=== PATIENT | female | born 1955 | race Caucasian/White ===

== ENCOUNTER 2016-12-22 11:16 | Inpatient (IN) | payer MEDICARE, OTHER ==
[~2016-12-22] VITALS: Ht 152.4 cm; Wt 34.1 kg
[~2016-12-22 11:16] MED LIST: ADVAIR 500-501 EACH INH; ASPIR 8181 MG PO; CEFTIN250 MG/5 M PO; ENSURE LIQUID237 ML PO; HYDROCODON-ACE1 EAC6 PO; KLONOPIN0.5 MG PO; MEDROL DOSEPAK 24 MG PO; MEGACE400 MG/10 PO; MULTIPLE VITAM1 EACH PO; NEURONTIN 300300 MG PO; PROMOD 946 ML BT1 EA PO; SPIRIVA HANDIH18 MCG INH; SPIRIVA18 MCG INH; THERAGRAN M TAB1 EA PO; VENTOLIN/PROVE0.5 ML INH; ZOCOR20 MG PO
[2016-12-22 13:40] LABS: BUN/CREATININE RATIO 45 (0-10)
[2016-12-22 13:47] LABS: HEMOGLOBIN 10.5 gm/dl (12.3-15.3); RED BLOOD COUNT 3.27 M/UL (4.00-5.10)
[2016-12-23 03:20] LABS: BUN/CREATININE RATIO 55 (0-10)
[2016-12-24 05:25] LABS: RED BLOOD COUNT 3.09 M/UL (4.00-5.10)
[2016-12-24 05:27] LABS: WHITE BLOOD COUNT 10.3 K/UL (4.5-11.0)
[2016-12-24 05:46] LABS: BUN/CREATININE RATIO 43 (0-10)
[2016-12-25 04:15] LABS: HEMOGLOBIN 9.5 gm/dl (12.3-15.3); WHITE BLOOD COUNT 8.2 K/UL (4.5-11.0)
[2016-12-25 04:42] LABS: BUN/CREATININE RATIO 38 (0-10)
[2016-12-27 04:01] LABS: HEMOGLOBIN 10.3 gm/dl (12.3-15.3); RED BLOOD COUNT 3.15 M/UL (4.00-5.10); WHITE BLOOD COUNT 9.3 K/UL (4.5-11.0)
[2016-12-27 04:20] LABS: BUN/CREATININE RATIO 45 (0-10)
[2016-12-27 16:39] LABS: HEMOGLOBIN 10.9 gm/dl (12.3-15.3); RED BLOOD COUNT 3.43 M/UL (4.00-5.10); WHITE BLOOD COUNT 17.2 K/UL (4.5-11.0)
[2016-12-29 03:43] LABS: HEMOGLOBIN 9.2 gm/dl (12.3-15.3); WHITE BLOOD COUNT 16.4 K/UL (4.5-11.0)
[2016-12-29 03:45] LABS: RED BLOOD COUNT 2.93 M/UL (4.00-5.10)
[2016-12-29] MEDS ORDERED: REMERON15 MG PO ×2 (11:27→13:07)
[2016-12-29] MEDS ORDERED: MEDROL DOSEPAK 24 MG PO (14:18)
[2016-12-29] MEDS ORDERED: BACITRACIN OINT30 GM EXT (14:25)
[2016-12-29] MEDS ORDERED: ENSURE PLUS237 ML PO (14:27)
[2016-12-29] MEDS ORDERED: LEVAQUIN750 MG PO (14:27)
[2016-12-29] MEDS ORDERED: PROTONIX 40 MG40 M1 PO (14:54)
== END 2016-12-29 16:28 | DRG 208 ==
LOC: ER1 11:16 → CCU 16:19 → ZEROF 16:19 → CCU 20:03
PROVIDERS: Emergency Medicine; Family Medicine; Internal Medicine Pulmonary Disease; ADMIT Legal Medicine
PROC: 0BH17EZ Insertion of Endotracheal Airway into Trachea, Via Natural or Artificial Opening (ICD-10-PCS; principal; 2016-12-22)
PROC: 5A1945Z Respiratory Ventilation, 24-96 Consecutive Hours (ICD-10-PCS; 2016-12-22)
PROC: 0DH67UZ Insertion of Feeding Device into Stomach, Via Natural or Artificial Opening (ICD-10-PCS; 2016-12-23)
PROC: 5A09557 Assistance with Respiratory Ventilation, Greater than 96 Consecutive Hours, Continuous Positive Airway Pressure (ICD-10-PCS; 2016-12-26)
DX: J96.21 Acute and chronic respiratory failure with hypoxia (principal); E43 Unspecified severe protein-calorie malnutrition; J18.9 Pneumonia, unspecified organism; G93.49 Other encephalopathy; F11.20 Opioid dependence, uncomplicated; E87.0 Hyperosmolality and hypernatremia; R64 Cachexia; I50.32 Chronic diastolic (congestive) heart failure; Z68.1 Body mass index [BMI] 19.9 or less, adult; J44.9 Chronic obstructive pulmonary disease, unspecified; D69.6 Thrombocytopenia, unspecified; G89.29 Other chronic pain; Z91.81 History of falling; M54.9 Dorsalgia, unspecified; E78.5 Hyperlipidemia, unspecified; G62.9 Polyneuropathy, unspecified; F17.210 Nicotine dependence, cigarettes, uncomplicated; F41.8 Other specified anxiety disorders; T17.990A Other foreign object in respiratory tract, part unspecified in causing asphyxiation, initial encounter; R00.0 Tachycardia, unspecified; W06.XXXA Fall from bed, initial encounter; Y92.231 Patient bathroom in hospital as the place of occurrence of the external cause; S01.01XA Laceration without foreign body of scalp, initial encounter; R07.81 Pleurodynia; M79.604 Pain in right leg; Z99.81 Dependence on supplemental oxygen; Z82.49 Family history of ischemic heart disease and other diseases of the circulatory system; Z86.73 Personal history of transient ischemic attack (TIA), and cerebral infarction without residual deficits; S00.83XA Contusion of other part of head, initial encounter
CPT/HCPCS: ECHO; 36415; 36600; 51702; 70450; 71010; 71111; 72125; 73502; 73552; 80048; 80053; 80202; 82550; 82553; 82803; 83605; 83735; 83874; 83880; 84100; 84132; 84484; 85025; 85027; 85610; 85730; 86850; 86900; 86901; 87040; 87070; 87077; 87205; 93306; 94002; 94003; 94640; 94660; 94664; 96361; 96374; 96375; 97110; 97530; 99291; 99292; C9113; J0330; J1650; J1940; J1956; J2920; J2930; J3370; J3480; J7030; J7050; J7070; J7509